=== PATIENT | female | born 1930 | race African-American/Black ===

== ENCOUNTER 2017-01-15 13:18 | Inpatient (IN) | payer MEDICARE, OTHER ==
[~2017-01-15] VITALS: Ht 162.6 cm; Wt 93.9 kg
[~2017-01-15 13:18] MED LIST: AMLODIPINE BESY10 MG ORAL; ASPIR 8181 MG ORAL; BENADRYL25 M3 PO; LORAZEPAM1 MG ORAL; METOPROLOL TART25 MG ORAL; NITROSTAT0.4 M1 SL; TRIAMTERENE-HC1 EAC7 ORAL; [UNRECOGNIZED DRUG - OTHER] RIGHT EYE
[2017-01-15] MEDS ORDERED: Meclizine 25mg tab ORAL ONE (13:45)
[2017-01-15 14:00] LABS: BASOPHILS % (AUTO) 1.8 % (0.0-2.0); EOSINOPHILS % (AUTO) 3.6 % (0.0-3.0); LYMPHOCYTES % (AUTO) 21.8 % (20.0-45.0); MEAN CORPUSCULAR HEMOGLOBIN 30.4 PG (27.0-31.0); MEAN CORPUSCULAR HGB CONC 32.2 G/DL (32.0-36.0); MEAN CORPUSCULAR VOLUME 95 FL (80-99); MEAN PLATELET VOLUME 6.6 FL (6.5-10.1); MONOCYTES % (AUTO) 7.4 % (1.0-10.0); NEUTROPHILS % (AUTO) 65.3 % (45.0-75.0); PLATELET COUNT 237 K/UL (150-450); RED BLOOD COUNT 4.23 M/UL (4.20-5.40); RED CELL DISTRIBUTION WIDTH 12.4 % (11.6-14.8); WHITE BLOOD COUNT 5.3 K/UL (4.8-10.8)
[2017-01-15 14:12] LABS: PROTHROMBIN TIME 10.1 SEC (9.30-11.50)
[2017-01-15 14:15] LABS: TROPONIN I < 0.30 ng/mL (<=0.30)
[2017-01-15] MEDS ORDERED: Miralax 17gm pkt ORAL PRN (14:15)
[2017-01-15] MEDS ORDERED: LORazepam Inj 2mg/ml 1ml IV PRN (14:15)
[2017-01-15] MEDS ORDERED: Morphine Sulfate 2mg/ml Inj IVP PRN (14:15)
[2017-01-15] MEDS ORDERED: Mylanta II UD 30ml ORAL PRN (14:15)
[2017-01-15] MEDS ORDERED: Nitroglycerin Subl 0.4mg tab SL PRN ×2 (14:15→16:00)
[2017-01-15] MEDS ORDERED: Albuterol/Ipratropium 3ml neb HHN PRN (14:15)
[2017-01-15 14:17] VITALS: BP 174/82
[2017-01-15 14:19] LABS: ALANINE AMINOTRANSFERASE 10 U/L (3-33); ALBUMIN/GLOBULIN RATIO 1.4 (1.0-2.7); ANION GAP 14 (5-15); ASPARTATE AMINO TRANSFERASE 18 U/L (5-40); CALCIUM 9.3 mg/dL (8.6-10.2); CARBON DIOXIDE 25 mEQ/L (20-30); CHLORIDE 103 mEQ/L (98-107); CREATININE 1.4 mg/dL (0.5-0.9); HEMOLYSIS 21; SODIUM 142 mEQ/L (135-145); TOTAL PROTEIN 7.1 g/dL (6.6-8.7)
[2017-01-15 14:30] LABS: CKMB 1.8 ng/mL (< 3.8)
--- NOTE | 2017-01-15 14:38 | Diagnostic Imaging Report ---
Indications: Dizziness Technique: Spiral acquisitions obtained through the brain. Angled axial and coronal 5 x 5 mm slices were reconstructed. Total dose length product 1432 mGycm. CTDI vol(s) 17 mGy. Dose reduction achieved using automated exposure control Comparison: None Findings: No acute hemorrhage or edema. No mass effect or midline shift. Old lacunar infarcts are seen in the left basal ganglia and in the left periventricular the white matter. No acute hemorrhage or edema. There is mild periventricular deep white matter chronic ischemic change. Ventricles and extra-axial CSF spaces within normal limits for age. No mass effect nor midline shift. Normal castillo-white differentiation. 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
[2017-01-15 14:46] LABS: APPEARANCE,URINE CLEAR; KETONES,URINE NEGATIVE (NEGATIVE); LEUKOCYTE ESTERASE ,URINE NEGATIVE (NEGATIVE); NITRITE,URINE NEGATIVE (NEGATIVE); PH,URINE 7 (4.5-8.0); PROTEIN,URINE 3+ (NEGATIVE); UROBILINOGEN,URINE NORMAL MG/DL (0.0-1.0)
[2017-01-15 15:02] LABS: BACTERIA,URINE FEW /HPF; RBC,URINE 0-2 /HPF (0 - 2); SQUAMOUS EPITHELIAL CELL,UR FEW /LPF (NONE/OCC); WBC,URINE 0-2 /HPF (0 - 2)
[2017-01-15 15:14] VITALS: BP 155/86
--- NOTE | 2017-01-15 15:35 | Emergency Room Report ---
History of Present Illness General Chief Complaint: Dizziness Source: Patient Present Illness HPI This is a 86-year-old female presented for increased generalized weakness as well as left-sided headache. The patient reported having prior history of transient ischemic attack. The patient had acute onset of symptoms associated with some dizziness. She reported having some lateral neck pain. She states that she takes medications for high blood pressure. She been followed by physicians at [facility]. Allergies: Coded Allergies: SULFADIAZINE (Unverified Allergy, Severe, 01/15/17) PENICILLINS (Verified Allergy, Unknown, 03/28/11) SULFA (SULFONAMIDE ANTIBIOTICS) (Verified Allergy, Unknown, 03/28/11) TETANUS TOXOID,FLUID (Verified Allergy, Unknown, 03/28/11) Patient History Past Medical History: see triage record Reviewed Nursing Documentation: PMH: Agreed, PSxH: Agreed Nursing Documentation-PMH Hx Cardiac Problems: Yes Hx Hypertension: Yes Hx Pacemaker: No Hx Asthma: No Hx COPD: No Hx Diabetes: No Hx Cancer: No Hx Gastrointestinal Problems: No Hx Dialysis: No History Of Psychiatric Problem: No Hx Neurological Problems: No Hx Transient Ischemic Attacks: Yes - 1982 Hx Seizures: No Review of Systems All Other Systems: negative except mentioned in HPI Physical Exam Vital Signs Date Time Temp Pulse Resp B/P (MAP) Pulse Ox O2 Delivery O2 Flow Rate FiO2 01/15/17 13:10 98.2 78 18 178/85 99 01/15/17 14:17 Room Air Sp02 EP Interpretation: reviewed, normal General Appearance: normal inspection, alert, non-toxic, moderate distress Head: atraumatic ENT: normal ENT inspection, hearing grossly normal, normal voice Neck: normal inspection, full range of motion, supple, no bony tend Respiratory: normal inspection, lungs clear, normal breath sounds, no respiratory distress, no retraction, no wheezing Cardiovascular #1: regular rate, rhythm, no edema Gastrointestinal: normal inspection, normal bowel sounds, non tender, soft, no guarding, no hernia Genitourinary: no CVA tenderness Musculoskeletal: normal inspection, back normal, normal range of motion Neurologic: normal inspection, alert, oriented x3, responsive, animal anatomist III-XII nml as tested, cerebellar normal, speech normal Psychiatric: normal inspection, judgement/insight normal, mood/affect normal Skin: normal inspection, normal color, no rash Medical Decision Making Diagnostic Impression: Primary Impression: Dizziness Additional Impressions: ACS (acute coronary syndrome) Generalized weakness ER Course Patient presented for generalized weakness. Differential diagnosis included was not limited to anemia, urinary tract infection, electrolyte abnormality, hypothyroidism, myocardial infarction, myasthenia gravis, dehydration, among others. Because of complexity of patient's case laboratory testing and imaging studies were ordered. EKG interpreted by me showed normal sinus rhythm with a rate of [address] or T wave changes. Patient was noted to have some T-wave inversion. CT the head was ordered due to patient's acute onset of symptoms CT read by radiology showed no evidence acute hemorrhage or CVA. The patient was given aspirin as well as meclizine and Zofran. Patient noted to have episode of chest discomfort while in emergency department. This resolved with medication and nitroglycerin Dr. Campos was contacted for inpatient management due to complexity of medical condition. Labs Test 01/15/17 13:35 01/15/17 14:30 White Blood Count 5.3 K/UL (4.8-10.8) Red Blood Count 4.23 M/UL (4.20-5.40) Hemoglobin 12.9 G/DL (12.0-16.0) Hematocrit 40.0 % (37.0-47.0) Mean Corpuscular Volume 95 FL (80-99) Mean Corpuscular Hemoglobin 30.4 PG (27.0-31.0) Mean Corpuscular Hemoglobin Concent 32.2 G/DL (32.0-36.0) Red Cell Distribution Width 12.4 % (11.6-14.8) Platelet Count 237 K/UL (150-450) Mean Platelet Volume 6.6 FL (6.5-10.1) Neutrophils (%) (Auto) 65.3 % (45.0-75.0) Lymphocytes (%) (Auto) 21.8 % (20.0-45.0) Monocytes (%) (Auto) 7.4 % (1.0-10.0) Eosinophils (%) (Auto) 3.6 % (0.0-3.0) Basophils (%) (Auto) 1.8 % (0.0-2.0) Prothrombin Time 10.1 SEC (9.30-11.50) Prothromb Time International Ratio 1.0 (0.9-1.1) Activated Partial Thromboplast Time 23 SEC (23-33) Sodium Level 142 mEQ/L (135-145) Potassium Level 4.0 mEQ/L (3.4-4.9) Chloride Level 103 mEQ/L (98-107) Carbon Dioxide Level 25 mEQ/L (20-30) Anion Gap 14 (5-15) Blood Urea Nitrogen 16 mg/dL (7-23) Creatinine 1.4 mg/dL (0.5-0.9) Estimat Glomerular Filtration Rate mL/min (>60) Glucose Level 110 mg/dL (74-106) Lactic Acid Level 1.60 mmol/L (0.66-2.22) Calcium Level 9.3 mg/dL (8.6-10.2) Total Bilirubin 0.2 mg/dL (0.0-1.2) Aspartate Amino Transf (AST/SGOT) 18 U/L (5-40) Alanine Aminotransferase (ALT/SGPT) 10 U/L (3-33) Alkaline Phosphatase 99 U/L (35-104) Total Creatine Kinase 118 U/L (26-140) Creatine Kinase MB 1.8 ng/mL (< 3.8) Creatine Kinase MB Relative Index 1.5 Troponin I < 0.30 ng/mL (<=0.30) Total Protein 7.1 g/dL (6.6-8.7) Albumin 4.2 g/dL (3.5-5.2) Globulin 2.9 g/dL Albumin/Globulin Ratio 1.4 (1.0-2.7) Urine Color Pale yellow Urine Appearance Clear Urine pH 7 (4.5-8.0) Urine Specific [place] 1.005 (1.005-1.035) Urine Protein 3+ (NEGATIVE) Urine Glucose (UA) Negative (NEGATIVE) Urine Ketones Negative (NEGATIVE) Urine Occult Blood Negative (NEGATIVE) Urine Nitrite Negative (NEGATIVE) Urine Bilirubin Negative (NEGATIVE) Urine Urobilinogen Normal MG/DL (0.0-1.0) Urine Leukocyte Esterase Negative (NEGATIVE) Urine RBC 0-2 /HPF (0 - 2) Urine WBC 0-2 /HPF (0 - 2) Urine Squamous Epithelial Cells Few /LPF (NONE/OCC) Urine Bacteria Few /HPF (NONE) Last Vital Signs Date Time Temp Pulse Resp B/P (MAP) Pulse Ox O2 Delivery O2 Flow Rate FiO2 01/15/17 15:14 97.3 62 10 155/86 100 Room Air Status: improved Disposition: HOME, SELF-CARE Condition: Stable Referrals: NON PHYSICIAN (PCP) Marco Antonio Junior Jan 15, 2017 15:35
--- NOTE | 2017-01-15 15:43 | Diagnostic Imaging Report ---
Indication: SOB Technique: One view of the chest Comparison: 02/26/2015 Findings: Lungs and pleural space are clear. Heart size is. There is somewhat tortuous and calcified. There are degenerative changes of both shoulders. There is no significant interim change Impression: No acute process
[2017-01-15] MEDS ORDERED: Aspirin Baby 81mg ORAL ONE (15:45)
--- NOTE | 2017-01-15 16:43 | Neurology Progress Note ---
Objective Physical Exam Last Vital Signs Date Time Temp Pulse Resp B/P (MAP) Pulse Ox O2 Delivery O2 Flow Rate FiO2 01/15/17 16:10 97.3 62 10 155/86 100 Room Air Laboratory Tests Test 01/15/17 13:35 01/15/17 14:30 White Blood Count 5.3 K/UL (4.8-10.8) Red Blood Count 4.23 M/UL (4.20-5.40) Hemoglobin 12.9 G/DL (12.0-16.0) Hematocrit 40.0 % (37.0-47.0) Mean Corpuscular Volume 95 FL (80-99) Mean Corpuscular Hemoglobin 30.4 PG (27.0-31.0) Mean Corpuscular Hemoglobin Concent 32.2 G/DL (32.0-36.0) Red Cell Distribution Width 12.4 % (11.6-14.8) Platelet Count 237 K/UL (150-450) Mean Platelet Volume 6.6 FL (6.5-10.1) Neutrophils (%) (Auto) 65.3 % (45.0-75.0) Lymphocytes (%) (Auto) 21.8 % (20.0-45.0) Monocytes (%) (Auto) 7.4 % (1.0-10.0) Eosinophils (%) (Auto) 3.6 % (0.0-3.0) H Basophils (%) (Auto) 1.8 % (0.0-2.0) Prothrombin Time 10.1 SEC (9.30-11.50) Prothromb Time International Ratio 1.0 (0.9-1.1) Activated Partial Thromboplast Time 23 SEC (23-33) Sodium Level 142 mEQ/L (135-145) Potassium Level 4.0 mEQ/L (3.4-4.9) Chloride Level 103 mEQ/L (98-107) Carbon Dioxide Level 25 mEQ/L (20-30) Anion Gap 14 (5-15) Blood Urea Nitrogen 16 mg/dL (7-23) Creatinine 1.4 mg/dL (0.5-0.9) H Estimat Glomerular Filtration Rate mL/min (>60) Glucose Level 110 mg/dL (74-106) H Lactic Acid Level 1.60 mmol/L (0.66-2.22) Calcium Level 9.3 mg/dL (8.6-10.2) Total Bilirubin 0.2 mg/dL (0.0-1.2) Aspartate Amino Transf (AST/SGOT) 18 U/L (5-40) Alanine Aminotransferase (ALT/SGPT) 10 U/L (3-33) Alkaline Phosphatase 99 U/L (35-104) Total Creatine Kinase 118 U/L (26-140) Creatine Kinase MB 1.8 ng/mL (< 3.8) Creatine Kinase MB Relative Index 1.5 Troponin I < 0.30 ng/mL (<=0.30) Total Protein 7.1 g/dL (6.6-8.7) Albumin 4.2 g/dL (3.5-5.2) Globulin 2.9 g/dL Albumin/Globulin Ratio 1.4 (1.0-2.7) Urine Color Pale yellow Urine Appearance Clear Urine pH 7 (4.5-8.0) Urine Specific [place] 1.005 (1.005-1.035) Urine Protein 3+ (NEGATIVE) H Urine Glucose (UA) Negative (NEGATIVE) Urine Ketones Negative (NEGATIVE) Urine Occult Blood Negative (NEGATIVE) Urine Nitrite Negative (NEGATIVE) Urine Bilirubin Negative (NEGATIVE) Urine Urobilinogen Normal MG/DL (0.0-1.0) Urine Leukocyte Esterase Negative (NEGATIVE) Urine RBC 0-2 /HPF (0 - 2) Urine WBC 0-2 /HPF (0 - 2) Urine Squamous Epithelial Cells Few /LPF (NONE/OCC) Urine Bacteria Few /HPF (NONE) Impression/Recommendations Recommendations # [id number] MARCE HUSSEIN Jan 15, 2017 16:43
[2017-01-15 20:00] VITALS: BP 152/76
[2017-01-15] MEDS: Metoprolol 25mg tab ORAL SCH (20:51)
[2017-01-15] MEDS: Heparin 5000 units/ml inj SUBQ SCH (20:53)
--- NOTE | 2017-01-15 21:00 | Consultation ---
DATE OF CONSULTATION: 01/15/2017 NEUROLOGICAL CONSULTATION REQUESTING PHYSICIAN: Bandar Campos M.D. History Of Present Illness: An 86 years old female, seen in neurological consultation to evaluate new onset of severe left-sided headache. According to the patient, she woke up this morning feeling fairly well, but after the breakfast, she started to develop generalized weakness, pain in her left periorbital, left yazidi, and left side of the neck area, and slight blurriness of vision in left eye. When she checked her blood pressure, it was 203/67. She called her doctor, advised to take extra pill of Lopressor, since she was not getting better, she called the visiting nurse and at that point 911 was requested. The patient was brought to this hospital complaining of generalized weakness and left-sided headache. Her vital signs included blood pressure 178/85 and temperature 98.2 degrees. EKG, normal sinus rhythm, no acute changes. Her laboratory work included normal CBC, coagulation, and chemistry panel except creatinine 1.4. Imaging studies included a chest x-ray with no acute process noted as well as CAT scan of the brain without contrast revealing old left lacunar infarct, left basal ganglia, left periventricular white matter with chronic ischemic changes noted, no evidence of acute intracranial abnormalities, no midline shift. Her vital signs were fluctuating. She had an episode of chest pain with blood pressure going up to 175. As the blood pressure is somewhat subsided, the patient felt better. She was given treatment with aspirin, meclizine, and Zofran. Chest pressure was relieved by use of nitroglycerin. The patient was placed to monitored bed. 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 Social History: She lives alone. No alcohol. No drug abuse. She has a caregiver. FAMILY HISTORY: Noncontributory. Review Of Systems: Generalized weakness but predominantly aching pain in left side of the neck, left temporal area, and has chronic left shoulder pain. Currently, no chest pain. No abdominal discomfort, but has constipation. PHYSICAL EXAMINATION: General: A well-developed, well-nourished, pleasant lady, in no acute distress. VITAL SIGNS: Stable. Blood pressure 154/92 and respirations 18. HEENT: Head: Normocephalic. There is no evidence of trauma, but there is palpable tenderness in the left temporal area, left preauricular region, and left side of the neck. Extremities: Upper and lower extremities without clubbing, cyanosis, or edema. Palpable tenderness in the left shoulder with range of motion limited. Peripheral pulses 1+ symmetric. Mental Status: The patient is fully alert and oriented x3. Her speech is fluent. Language intact. There is no aphasia. No apraxia. Cognitive function normal. Cranial Nerve II: Pupils both responding to light and accommodation. Extraocular movements intact. No nystagmus. CRANIAL NERVE V: Normal corneal responses. CRANIAL NERVE VII: No facial asymmetry. CRANIAL NERVE VIII: Grossly normal hearing. CRANIAL NERVES IX THROUGH XII: Within normal limits. Motor Examination: Normal muscle tone. Strength 5/5 in all extremities. No involuntary movement. Deep reflexes 1+ symmetric with downgoing toes on both sides. Sensory Examination: Normal to pinprick and light touch. Gait slow and wobbly. IMPRESSION: 1. Hypertension, out of control. 2. New onset of left hemicrania, left neck pain, rule out referred pain, rule out cervical radiculopathy. 3. Coronary artery disease. 4. Hypertension. 5. Renal insufficiency. 6. Rule out temporal arteritis with left temporal pain. RECOMMENDATION: 1. Sedimentation rate, CRP, JENNIFER, B12, vitamin D level, and thyroid function. 2. Cardiac monitoring. 3. Maintain systolic blood pressure above 120 and below 150. 4. Hydration. 5. Subcutaneous heparin. 6. Aspirin 81 mg. 7. X-ray cervical spine. Thank you for allowing me to see this interesting patient in neurological consultation. Sal Campos M.D. DR: Cj JOB#: [id number] CC:
--- NOTE | 2017-01-15 21:30 | Cardiology Progress Note ---
Assessment/Plan Assessment/Plan [id number] Objective Last 24 Hour Vital Signs Date Time Temp Pulse Resp B/P (MAP) Pulse Ox O2 Delivery O2 Flow Rate FiO2 01/15/17 21:20 71 18 Room Air 01/15/17 20:51 62 152/76 01/15/17 20:00 97.2 61 21 152/76 99 Room Air 01/15/17 16:10 97.3 62 10 155/86 100 Room Air 01/15/17 15:14 97.3 62 10 155/86 100 Room Air 01/15/17 14:17 98.5 65 18 174/82 100 Room Air 01/15/17 14:14 174/82 01/15/17 13:10 98.2 78 18 178/85 99 Intake and Output 01/15/17 01/16/17 19:00 07:00 Intake Total 240 ml Balance 240 ml Intake Oral 240 ml # Voids 1 # Bowel Movements 1 Laboratory Tests Test 01/15/17 13:35 01/15/17 14:30 White Blood Count 5.3 K/UL (4.8-10.8) Red Blood Count 4.23 M/UL (4.20-5.40) Hemoglobin 12.9 G/DL (12.0-16.0) Hematocrit 40.0 % (37.0-47.0) Mean Corpuscular Volume 95 FL (80-99) Mean Corpuscular Hemoglobin 30.4 PG (27.0-31.0) Mean Corpuscular Hemoglobin Concent 32.2 G/DL (32.0-36.0) Red Cell Distribution Width 12.4 % (11.6-14.8) Platelet Count 237 K/UL (150-450) Mean Platelet Volume 6.6 FL (6.5-10.1) Neutrophils (%) (Auto) 65.3 % (45.0-75.0) Lymphocytes (%) (Auto) 21.8 % (20.0-45.0) Monocytes (%) (Auto) 7.4 % (1.0-10.0) Eosinophils (%) (Auto) 3.6 % (0.0-3.0) H Basophils (%) (Auto) 1.8 % (0.0-2.0) Prothrombin Time 10.1 SEC (9.30-11.50) Prothromb Time International Ratio 1.0 (0.9-1.1) Activated Partial Thromboplast Time 23 SEC (23-33) Sodium Level 142 mEQ/L (135-145) Potassium Level 4.0 mEQ/L (3.4-4.9) Chloride Level 103 mEQ/L (98-107) Carbon Dioxide Level 25 mEQ/L (20-30) Anion Gap 14 (5-15) Blood Urea Nitrogen 16 mg/dL (7-23) Creatinine 1.4 mg/dL (0.5-0.9) H Estimat Glomerular Filtration Rate mL/min (>60) Glucose Level 110 mg/dL (74-106) H Lactic Acid Level 1.60 mmol/L (0.66-2.22) Calcium Level 9.3 mg/dL (8.6-10.2) Total Bilirubin 0.2 mg/dL (0.0-1.2) Aspartate Amino Transf (AST/SGOT) 18 U/L (5-40) Alanine Aminotransferase (ALT/SGPT) 10 U/L (3-33) Alkaline Phosphatase 99 U/L (35-104) Total Creatine Kinase 118 U/L (26-140) Creatine Kinase MB 1.8 ng/mL (< 3.8) Creatine Kinase MB Relative Index 1.5 Troponin I < 0.30 ng/mL (<=0.30) Total Protein 7.1 g/dL (6.6-8.7) Albumin 4.2 g/dL (3.5-5.2) Globulin 2.9 g/dL Albumin/Globulin Ratio 1.4 (1.0-2.7) Urine Color Pale yellow Urine Appearance Clear Urine pH 7 (4.5-8.0) Urine Specific [place] 1.005 (1.005-1.035) Urine Protein 3+ (NEGATIVE) H Urine Glucose (UA) Negative (NEGATIVE) Urine Ketones Negative (NEGATIVE) Urine Occult Blood Negative (NEGATIVE) Urine Nitrite Negative (NEGATIVE) Urine Bilirubin Negative (NEGATIVE) Urine Urobilinogen Normal MG/DL (0.0-1.0) Urine Leukocyte Esterase Negative (NEGATIVE) Urine RBC 0-2 /HPF (0 - 2) Urine WBC 0-2 /HPF (0 - 2) Urine Squamous Epithelial Cells Few /LPF (NONE/OCC) Urine Bacteria Few /HPF (NONE) MARLENY RAMOS Jan 15, 2017 21:30
[2017-01-16] VITALS: BP 154/77
[2017-01-16 04:00] VITALS: BP 155/94
--- NOTE | 2017-01-16 06:15 | Consultation ---
DATE OF CONSULTATION: 01/15/2017 CARDIOLOGY CONSULTATION CONSULTING PHYSICIAN: Nuno Shen M.D. REFERRING PHYSICIAN: Bandar Campos M.D. Reason For Referral: Possible chest pain and elevated blood pressure. History Of Present Illness: This is an elderly female, who usually receives her care at [facility]. The patient was admitted to the hospital back on 12/26/2016 for similar symptoms that she is presenting to the hospital at this time. She basically indicates that she got up in the morning, her blood pressure was elevated, took some extra doses of beta-blockers as she was instructed by her validation technician staff and that did not help, so she was told to call paramedics by home health. The patient was brought to the emergency room at [facility] and has been admitted. She does not really have any chest pain at this time. She has had chronic recurrent chest pains. She has had evaluations on prior occasions. In fact, she was recently hospitalized for the same situation over at the [facility], [place]. Her validation technician did not apparently do a stress test. She indicates she has had a history of cardiac issues before. She may have had some kind of a procedure done, which she is not sure about. In 2014, she had perfusion imaging that was negative here at [facility] for her atypical chest pains at that time as well. She uses 2 pillows. She does have dizziness occasionally when she sits up or stands up. She has occasional palpitations. She has occasional dyspnea on exertion. Past Medical History: Positive for history of atypical chest pains as mentioned, borderline diabetes, hypertension, chronic kidney disease, and hyperlipidemia. She had a transient ischemic attack apparently. She has some renal insufficiency and apparently some GI bleed issues, although she just was not sure if it was vaginal or rectal. She states that it had been evaluated at the [facility], [place], she is not sure what they found. She has never had a blood clot. Allergies: She is allergic to multiple medications including penicillin, sulfa, sulfasalazine, and iodine. Social History: She never smoked and never drank alcoholic beverages. Review Of Systems: Gastrointestinal: She has had rectal bleeding as mentioned in earlier this month with evaluation at [facility]. Genitourinary: Negative. Pulmonary: Positive for occasional coughing, but she thinks it is related to her medication. Constitutional: Negative. Neurological: Negative. PHYSICAL EXAMINATION: General: Physical examination shows her to be elderly female, in no respiratory distress. Vital Signs: Blood pressure is anywhere between 152/76 to 174/82, heart rate 61 to 65 range, and telemetry data is unremarkable Neck: Supple. No jugular venous distention. No abdominojugular reflux noted. LUNGS: Clear to auscultation and percussion. Cardiac: S1 is normal. S2 is normal. Regular rate and rhythm. Systolic ejection murmur is noted. No RV lift, heaves, thrills, or gallops noted. ABDOMEN: Soft and nontender. Positive bowel sounds. EXTREMITIES: There is no clubbing, cyanosis, nor is there any edema. Neurologic: She is awake, alert, responsive, in no apparent respiratory distress. Laboratory And Diagnostic Data: Electrocardiogram showed normal sinus rhythm, leftward axis, no significant ST-T wave abnormalities of any insignificant degree in direct comparison. She actually had 2 EKGs, none of which seemed to be any different. She also had blood tests. She has had a white count of 5.3, with hemoglobin of 12.9, and platelet count of 237. Sodium is 142, potassium 4.0, chloride 103, bicarbonate 25, BUN 16, creatinine 1.4, and glucose of 110. Lactic acid 1.6. Troponin is less than 0.03. Her coagulations, INR 1.2 and PTT of 23. A chest x-ray was performed today and showed no acute processes. ASSESSMENT AND PLAN: 1. Elevated blood pressure with history of hypertension. 2. Atypical chest pain, chronic, recurrent. 3. Renal insufficiency. 4. Questionable history of recent gastrointestinal and rectal bleed issues. Dr. Campos, this patient was seen in cardiac consultation. This patient apparently has had similar situations and symptoms, for which she was hospitalized at [facility], [place]. She has had a cardiac catheterization a couple of years ago or a stress test a couple of years ago, but that was done here and that was negative. If her cardiac enzymes remain negative, EKG and troponin are negative, then she may be better off just following up with the validation technician to have further testing. If she has got any abnormalities on the blood testing, we will consider further inpatient evaluation. Her blood pressure appears to be well controlled. Nuno Shen M.D. DR: Osvaldo JOB#: [id number] CC:
[2017-01-16 07:00] LABS: BASOPHILS % (AUTO) 1.7 % (0.0-2.0); EOSINOPHILS % (AUTO) 7.3 % (0.0-3.0); LYMPHOCYTES % (AUTO) 32.6 % (20.0-45.0); MEAN CORPUSCULAR HEMOGLOBIN 31.2 PG (27.0-31.0); MEAN CORPUSCULAR HGB CONC 32.6 G/DL (32.0-36.0); MEAN CORPUSCULAR VOLUME 96 FL (80-99); MEAN PLATELET VOLUME 7.5 FL (6.5-10.1); MONOCYTES % (AUTO) 13.1 % (1.0-10.0); NEUTROPHILS % (AUTO) 45.3 % (45.0-75.0); PLATELET COUNT 224 K/UL (150-450); PROTHROMBIN TIME 10.7 SEC (9.30-11.50); RED CELL DISTRIBUTION WIDTH 12.9 % (11.6-14.8); WHITE BLOOD COUNT 4.8 K/UL (4.8-10.8)
[2017-01-16 07:19] LABS: ANION GAP 12 (5-15); CARBON DIOXIDE 26 mEQ/L (20-30); CHLORIDE 108 mEQ/L (98-107); CREATININE 1.3 mg/dL (0.5-0.9); POTASSIUM 4.3 mEQ/L (3.4-4.9); SODIUM 146 mEQ/L (135-145)
[2017-01-16 07:20] LABS: ALANINE AMINOTRANSFERASE 8 U/L (3-33); ALBUMIN/GLOBULIN RATIO 1.2 (1.0-2.7); ASPARTATE AMINO TRANSFERASE 13 U/L (5-40); CHOLESTEROL 173 mg/dL (< 200); CHOLESTEROL/HDL RATIO 2.3 (3.3-4.4); HEMOLYSIS 4; LDL CHOLESTEROL CALC 85 mg/dL (60-99); TOTAL PROTEIN 6.3 g/dL (6.6-8.7)
[2017-01-16 07:21] LABS: TROPONIN I < 0.30 ng/mL (<=0.30)
[2017-01-16 08:00] VITALS: BP 167/73
[2017-01-16] MEDS: Aspirin EC 81mg tab ORAL SCH (08:55)
[2017-01-16] MEDS: Metoprolol 25mg tab ORAL SCH ×2 (09:00→22:24)
[2017-01-16] MEDS: Heparin 5000 units/ml inj SUBQ SCH ×2 (09:00→22:23)
[2017-01-16 12:00] VITALS: BP 129/65
--- NOTE | 2017-01-16 14:47 | History and Physical ---
History of Present Illness General Reason for Hospitalization: Dizziness Present Illness HPI 86-year-old female with hx of HTN, presented for increased generalized weakness as well as left-sided headache. The patient had acute onset of symptoms associated with some dizziness. She took her BP which was more than 200. She states that she takes medications for high blood pressure. She called her primary's office who told her to take a full pill of Lopressor instead of half a pill. Allergies: Coded Allergies: SULFADIAZINE (Unverified Allergy, Severe, 01/15/17) PENICILLINS (Verified Allergy, Unknown, 03/28/11) SULFA (SULFONAMIDE ANTIBIOTICS) (Verified Allergy, Unknown, 03/28/11) TETANUS TOXOID,FLUID (Verified Allergy, Unknown, 03/28/11) Medication History Scheduled Amlodipine Besylate* (Amlodipine Besylate*), 10 MG ORAL DAILY, (Reported) Aspirin* (Aspir 81*), 81 MG ORAL DAILY, (Reported) Diphenhydramine HCl (Benadryl), 50 MG PO FOUR TIMES A DAY, (Reported) Lorazepam* (Lorazepam*), 1 MG ORAL DAILY, (Reported) Metoprolol Tartrate* (Metoprolol Tartrate*), 25 MG ORAL TWICE A DAY, (Reported) Triamterene/Hydrochlorothiazid (Triamterene-Hctz 37.5-25 Mg Cp), 1 CAP ORAL DAILY, (Reported) Scheduled PRN Nitroglycerin (Nitrostat), 0.4 MG SL Q5M X3 DOSES PRN for Severe Pain (Pain Scale 7-10), (Reported) Prednisolone/Sulfacetamide (Blephamide Eye Ointment), 1 APPLIC RIGHT EYE DAILY PRN for Dry Eyes, (Reported) Patient History Healthcare decision maker N Resuscitation status Full Code Advanced Directive on File Past Medical/Surgical History Past Medical/Surgical History: (1) CAD (coronary artery disease) (2) Anemia (3) HTN (hypertension) Review of Systems All Other Systems: negative except mentioned in HPI Physical Exam General Appearance: WD/WN Lines, tubes and drains: peripheral, PICC HEENT: normocephalic, atraumatic Neck: non-tender, normal alignment Respiratory/Chest: chest wall non-tender, lungs clear Abdomen: normal bowel sounds, non tender Genitourinary/Rectal: normal genital exam Last 24 Hour Vital Signs Date Time Temp Pulse Resp B/P (MAP) Pulse Ox O2 Delivery O2 Flow Rate FiO2 01/16/17 12:00 56 01/16/17 12:00 97.2 56 20 129/65 99 Room Air 01/16/17 09:00 62 167/73 01/16/17 08:59 167/73 01/16/17 08:56 62 167/73 01/16/17 08:00 97.0 62 20 167/73 98 Room Air 01/16/17 08:00 65 01/16/17 07:47 60 18 Room Air 01/16/17 04:06 59 01/16/17 04:00 98.1 60 20 155/94 97 Room Air 01/16/17 00:00 97.0 60 20 154/77 97 Room Air 01/15/17 23:44 59 01/15/17 21:20 71 18 Room Air 01/15/17 20:51 62 152/76 01/15/17 20:23 60 01/15/17 20:00 97.2 61 21 152/76 99 Room Air 01/15/17 16:10 97.3 62 10 155/86 100 Room Air 01/15/17 15:14 97.3 62 10 155/86 100 Room Air Laboratory Tests Test 01/16/17 06:25 White Blood Count 4.8 K/UL (4.8-10.8) Red Blood Count 3.90 M/UL (4.20-5.40) L Hemoglobin 12.2 G/DL (12.0-16.0) Hematocrit 37.3 % (37.0-47.0) Mean Corpuscular Volume 96 FL (80-99) Mean Corpuscular Hemoglobin 31.2 PG (27.0-31.0) H Mean Corpuscular Hemoglobin Concent 32.6 G/DL (32.0-36.0) Red Cell Distribution Width 12.9 % (11.6-14.8) Platelet Count 224 K/UL (150-450) Mean Platelet Volume 7.5 FL (6.5-10.1) Neutrophils (%) (Auto) 45.3 % (45.0-75.0) Lymphocytes (%) (Auto) 32.6 % (20.0-45.0) Monocytes (%) (Auto) 13.1 % (1.0-10.0) H Eosinophils (%) (Auto) 7.3 % (0.0-3.0) H Basophils (%) (Auto) 1.7 % (0.0-2.0) Prothrombin Time 10.7 SEC (9.30-11.50) Prothromb Time International Ratio 1.0 (0.9-1.1) Activated Partial Thromboplast Time 28 SEC (23-33) Sodium Level 146 mEQ/L (135-145) H Potassium Level 4.3 mEQ/L (3.4-4.9) Chloride Level 108 mEQ/L (98-107) H Carbon Dioxide Level 26 mEQ/L (20-30) Anion Gap 12 (5-15) Blood Urea Nitrogen 15 mg/dL (7-23) Creatinine 1.3 mg/dL (0.5-0.9) H Estimat Glomerular Filtration Rate mL/min (>60) Glucose Level 102 mg/dL (74-106) Calcium Level 9.0 mg/dL (8.6-10.2) Total Bilirubin 0.3 mg/dL (0.0-1.2) Aspartate Amino Transf (AST/SGOT) 13 U/L (5-40) Alanine Aminotransferase (ALT/SGPT) 8 U/L (3-33) Alkaline Phosphatase 89 U/L (35-104) Troponin I < 0.30 ng/mL (<=0.30) Total Protein 6.3 g/dL (6.6-8.7) L Albumin 3.5 g/dL (3.5-5.2) Globulin 2.8 g/dL Albumin/Globulin Ratio 1.2 (1.0-2.7) Triglycerides Level 66 mg/dL (< 150) Cholesterol Level 173 mg/dL (< 200) LDL Cholesterol 85 mg/dL (60-99) HDL Cholesterol 75 mg/dL (> 60) H Cholesterol/HDL Ratio 2.3 (3.3-4.4) L Thyroid Stimulating Hormone (TSH) 1.990 uIU/mL (0.300-4.500) Height (Feet): 5 Height (Inches): 4.00 Weight (Pounds): 207 Medications Current Medications Medications (Trade) Dose Ordered Sig/Derek Route PRN Reason Start Time Stop Time Status Last Admin Dose Admin Acetaminophen (Tylenol) 650 mg Q4H PRN ORAL fever 01/15/17 14:15 02/14/17 14:14 Al Hydroxide/Mg Hydroxide (Mylanta II) 30 ml Q6H PRN ORAL dyspepsia 01/15/17 14:15 02/14/17 14:14 Albuterol/ Ipratropium (DuoNeb 0.5-3(2.5)mg/3ml) 3 ml Q4H PRN HHN Shortness of Breath 01/15/17 14:15 01/20/17 14:14 Amlodipine Besylate (Norvasc) 10 mg DAILY ORAL 01/16/17 09:00 02/15/17 08:59 01/16/17 08:56 Aspirin (Ecotrin) 81 mg DAILY ORAL 01/16/17 09:00 02/15/17 08:59 01/16/17 08:55 Clonidine HCl (Catapres) 0.1 mg Q4H PRN ORAL For High Blood Pressure 01/15/17 14:15 02/14/17 14:14 01/16/17 08:59 Dextrose (Dextrose 50%) STAT PRN IV Hypoglycemia 01/15/17 14:15 02/14/17 14:14 Heparin Sodium (Porcine) (Heparin 5000 units/ml) 5,000 units EVERY 12 HOURS SUBQ 01/15/17 21:00 02/14/17 20:59 01/15/17 20:53 Lorazepam (Ativan 2mg/ml 1ml) 0.5 mg Q4H PRN IV For Anxiety 01/15/17 14:15 01/22/17 14:14 Metoprolol Tartrate (Lopressor) 25 mg Q12HR ORAL 01/15/17 21:00 02/14/17 20:59 01/15/17 20:51 Morphine Sulfate (Morphine Sulfate) 1 mg Q4H PRN IVP For Pain 7-10 01/15/17 14:15 01/22/17 14:14 Nitroglycerin (Ntg) 0.4 mg Q5M X 3 DOSES PRN SL Prn Chest Pain 01/15/17 16:00 02/14/17 15:59 Ondansetron HCl (Zofran) 4 mg Q6H PRN IVP Nausea & Vomiting 01/15/17 14:15 02/14/17 14:14 Polyethylene Glycol (Miralax) 17 gm HSPRN PRN ORAL Constipation 01/15/17 14:15 02/14/17 14:14 Temazepam (Restoril) 15 mg HSPRN PRN ORAL Insomnia 01/15/17 14:15 01/22/17 14:14 Assessment/Plan Problem List: (1) Hypertensive emergency ICD Codes: I16.1 - Hypertensive emergency SNOMED: 876420289581726 (2) Hypertensive encephalopathy ICD Codes: I67.4 - Hypertensive encephalopathy SNOMED: 77145893 (3) CAD (coronary artery disease) ICD Codes: I25.10 - Atherosclerotic heart disease of robinson coronary artery without angina pectoris SNOMED: 66601339 (4) Generalized weakness ICD Codes: R53.1 - Weakness SNOMED: 10510760, 636077500 (5) ATN (acute tubular necrosis) ICD Codes: N17.0 - Acute kidney failure with tubular necrosis SNOMED: 55397763 Assessment/Plan telemetry admission monitor bp echo cardiogram pt/ot renal studies dvt prophylaxis CORINA MICHELLE Jan 16, 2017 14:47
--- NOTE | 2017-01-16 14:50 | Pulmonology Progress Note ---
Assessment/Plan Problems: (1) Hypertensive emergency (2) Hypertensive encephalopathy (3) CAD (coronary artery disease) (4) Generalized weakness (5) ATN (acute tubular necrosis) Assessment/Plan bp better ct of head reviewed renal studies undergoing check echo Subjective ROS Limited/Unobtainable: No Constitutional: Reports: no symptoms HEENT: Repors: no symptoms Respiratory: Reports: no symptoms Allergies: Coded Allergies: SULFADIAZINE (Unverified Allergy, Severe, 01/15/17) PENICILLINS (Verified Allergy, Unknown, 03/28/11) SULFA (SULFONAMIDE ANTIBIOTICS) (Verified Allergy, Unknown, 03/28/11) TETANUS TOXOID,FLUID (Verified Allergy, Unknown, 03/28/11) Objective Last 24 Hour Vital Signs Date Time Temp Pulse Resp B/P (MAP) Pulse Ox O2 Delivery O2 Flow Rate FiO2 01/16/17 12:00 56 01/16/17 12:00 97.2 56 20 129/65 99 Room Air 01/16/17 09:00 62 167/73 01/16/17 08:59 167/73 01/16/17 08:56 62 167/73 01/16/17 08:00 97.0 62 20 167/73 98 Room Air 01/16/17 08:00 65 01/16/17 07:47 60 18 Room Air 01/16/17 04:06 59 01/16/17 04:00 98.1 60 20 155/94 97 Room Air 01/16/17 00:00 97.0 60 20 154/77 97 Room Air 01/15/17 23:44 59 01/15/17 21:20 71 18 Room Air 01/15/17 20:51 62 152/76 01/15/17 20:23 60 01/15/17 20:00 97.2 61 21 152/76 99 Room Air 01/15/17 16:10 97.3 62 10 155/86 100 Room Air 01/15/17 15:14 97.3 62 10 155/86 100 Room Air General Appearance: WD/WN HEENT: normocephalic, atraumatic Respiratory/Chest: chest wall non-tender, lungs clear Breasts: no masses Cardiovascular: normal rate Abdomen: normal bowel sounds, soft, non tender Genitourinary: normal external genitalia Extremities: no clubbing Laboratory Tests 01/16/17 06:25: White Blood Count 4.8, Red Blood Count 3.90L, Hemoglobin 12.2, Hematocrit 37.3, Mean Corpuscular Volume 96, Mean Corpuscular Hemoglobin 31.2H, Mean Corpuscular Hemoglobin Concent 32.6, Red Cell Distribution Width 12.9, Platelet Count 224, Mean Platelet Volume 7.5, Neutrophils (%) (Auto) 45.3, Lymphocytes (%) (Auto) 32.6, Monocytes (%) (Auto) 13.1H, Eosinophils (%) (Auto) 7.3H, Basophils (%) ( Auto) 1.7, Prothrombin Time 10.7, Prothromb Time International Ratio 1.0, Activated Partial Thromboplast Time 28, Sodium Level 146H, Potassium Level 4.3, Chloride Level 108H, Carbon Dioxide Level 26, Anion Gap 12, Blood Urea Nitrogen 15, Creatinine 1.3H, Estimat Glomerular Filtration Rate , Glucose Level 102, Calcium Level 9.0, Total Bilirubin 0.3, Aspartate Amino Transf (AST/SGOT) 13, Alanine Aminotransferase (ALT/SGPT) 8, Alkaline Phosphatase 89, Troponin I < 0.30, Total Protein 6.3L, Albumin 3.5, Globulin 2.8, Albumin/Globulin Ratio 1.2 , Triglycerides Level 66, Cholesterol Level 173, LDL Cholesterol 85, HDL Cholesterol 75H, Cholesterol/HDL Ratio 2.3L, Thyroid Stimulating Hormone (TSH) 1.990 Current Medications Medications (Trade) Dose Ordered Sig/Derek Route PRN Reason Start Time Stop Time Status Last Admin Dose Admin Acetaminophen (Tylenol) 650 mg Q4H PRN ORAL fever 01/15/17 14:15 02/14/17 14:14 Al Hydroxide/Mg Hydroxide (Mylanta II) 30 ml Q6H PRN ORAL dyspepsia 01/15/17 14:15 02/14/17 14:14 Albuterol/ Ipratropium (DuoNeb 0.5-3(2.5)mg/3ml) 3 ml Q4H PRN HHN Shortness of Breath 01/15/17 14:15 01/20/17 14:14 Amlodipine Besylate (Norvasc) 10 mg DAILY ORAL 01/16/17 09:00 02/15/17 08:59 01/16/17 08:56 Aspirin (Ecotrin) 81 mg DAILY ORAL 01/16/17 09:00 02/15/17 08:59 01/16/17 08:55 Clonidine HCl (Catapres) 0.1 mg Q4H PRN ORAL For High Blood Pressure 01/15/17 14:15 02/14/17 14:14 01/16/17 08:59 Dextrose (Dextrose 50%) STAT PRN IV Hypoglycemia 01/15/17 14:15 02/14/17 14:14 Heparin Sodium (Porcine) (Heparin 5000 units/ml) 5,000 units EVERY 12 HOURS SUBQ 01/15/17 21:00 02/14/17 20:59 01/15/17 20:53 Ibuprofen (Motrin) 600 mg THREE TIMES A DAY ORAL 01/16/17 14:45 02/15/17 14:44 UNV Lorazepam (Ativan 2mg/ml 1ml) 0.5 mg Q4H PRN IV For Anxiety 01/15/17 14:15 01/22/17 14:14 Metoprolol Tartrate (Lopressor) 25 mg Q12HR ORAL 01/15/17 21:00 02/14/17 20:59 01/15/17 20:51 Morphine Sulfate (Morphine Sulfate) 1 mg Q4H PRN IVP For Pain 7-10 01/15/17 14:15 01/22/17 14:14 Nitroglycerin (Ntg) 0.4 mg Q5M X 3 DOSES PRN SL Prn Chest Pain 01/15/17 16:00 02/14/17 15:59 Ondansetron HCl (Zofran) 4 mg Q6H PRN IVP Nausea & Vomiting 01/15/17 14:15 02/14/17 14:14 Polyethylene Glycol (Miralax) 17 gm HSPRN PRN ORAL Constipation 01/15/17 14:15 02/14/17 14:14 Temazepam (Restoril) 15 mg HSPRN PRN ORAL Insomnia 01/15/17 14:15 01/22/17 14:14 CORINA MICHELLE Jan 16, 2017 14:50
[2017-01-16 16:00] VITALS: BP 135/72
[2017-01-16 20:00] VITALS: BP 139/70
--- NOTE | 2017-01-16 20:40 | Cardiology Progress Note ---
Assessment/Plan Assessment/Plan 1. Elevated blood pressure with history of hypertension. 2. Atypical chest pain, chronic, recurrent. 3. Renal insufficiency. 4. Questionable history of recent gastrointestinal and rectal bleed issues. all trop neg ekg non specific t wave changes has hs of wut with primary floor runner recently no exertional sx now bp seem ok will restart dyazide since no abn trop would allow her to see her usual floor runner who has followed her to consider other mcdonald iff not been performed recently with him Subjective Cardiovascular: Denies: chest pain, lightheadedness, palpitations Respiratory: Denies: shortness of breath, SOB with excertion Gastrointestinal/Abdominal: Denies: abdominal pain Genitourinary: Denies: burning Subjective walked in the [place] several occsioan Objective Last 24 Hour Vital Signs Date Time Temp Pulse Resp B/P (MAP) Pulse Ox O2 Delivery O2 Flow Rate FiO2 01/16/17 20:25 66 20 Room Air 01/16/17 16:00 97.3 61 19 135/72 99 Room Air 01/16/17 16:00 59 01/16/17 12:00 56 01/16/17 12:00 97.2 56 20 129/65 99 Room Air 01/16/17 09:00 62 167/73 01/16/17 08:59 167/73 01/16/17 08:56 62 167/73 01/16/17 08:00 97.0 62 20 167/73 98 Room Air 01/16/17 08:00 65 01/16/17 07:47 60 18 Room Air 01/16/17 04:06 59 01/16/17 04:00 98.1 60 20 155/94 97 Room Air 01/16/17 00:00 97.0 60 20 154/77 97 Room Air 01/15/17 23:44 59 01/15/17 21:20 71 18 Room Air 01/15/17 20:51 62 152/76 General Appearance: no apparent distress, alert Neck: supple Cardiovascular: normal rate, regular rhythm Respiratory/Chest: lungs clear, normal breath sounds Abdomen: normal bowel sounds, non tender, soft Extremities: no swelling Intake and Output 01/16/17 01/17/17 19:00 07:00 Intake Total 360 ml Balance 360 ml Intake Oral 360 ml # Voids 2 Laboratory Tests Test 01/16/17 06:25 White Blood Count 4.8 K/UL (4.8-10.8) Red Blood Count 3.90 M/UL (4.20-5.40) L Hemoglobin 12.2 G/DL (12.0-16.0) Hematocrit 37.3 % (37.0-47.0) Mean Corpuscular Volume 96 FL (80-99) Mean Corpuscular Hemoglobin 31.2 PG (27.0-31.0) H Mean Corpuscular Hemoglobin Concent 32.6 G/DL (32.0-36.0) Red Cell Distribution Width 12.9 % (11.6-14.8) Platelet Count 224 K/UL (150-450) Mean Platelet Volume 7.5 FL (6.5-10.1) Neutrophils (%) (Auto) 45.3 % (45.0-75.0) Lymphocytes (%) (Auto) 32.6 % (20.0-45.0) Monocytes (%) (Auto) 13.1 % (1.0-10.0) H Eosinophils (%) (Auto) 7.3 % (0.0-3.0) H Basophils (%) (Auto) 1.7 % (0.0-2.0) Prothrombin Time 10.7 SEC (9.30-11.50) Prothromb Time International Ratio 1.0 (0.9-1.1) Activated Partial Thromboplast Time 28 SEC (23-33) Sodium Level 146 mEQ/L (135-145) H Potassium Level 4.3 mEQ/L (3.4-4.9) Chloride Level 108 mEQ/L (98-107) H Carbon Dioxide Level 26 mEQ/L (20-30) Anion Gap 12 (5-15) Blood Urea Nitrogen 15 mg/dL (7-23) Creatinine 1.3 mg/dL (0.5-0.9) H Estimat Glomerular Filtration Rate mL/min (>60) Glucose Level 102 mg/dL (74-106) Calcium Level 9.0 mg/dL (8.6-10.2) Total Bilirubin 0.3 mg/dL (0.0-1.2) Aspartate Amino Transf (AST/SGOT) 13 U/L (5-40) Alanine Aminotransferase (ALT/SGPT) 8 U/L (3-33) Alkaline Phosphatase 89 U/L (35-104) Troponin I < 0.30 ng/mL (<=0.30) Total Protein 6.3 g/dL (6.6-8.7) L Albumin 3.5 g/dL (3.5-5.2) Globulin 2.8 g/dL Albumin/Globulin Ratio 1.2 (1.0-2.7) Triglycerides Level 66 mg/dL (< 150) Cholesterol Level 173 mg/dL (< 200) LDL Cholesterol 85 mg/dL (60-99) HDL Cholesterol 75 mg/dL (> 60) H Cholesterol/HDL Ratio 2.3 (3.3-4.4) L Thyroid Stimulating Hormone (TSH) 1.990 uIU/mL (0.300-4.500) MARLENY RAMOS Jan 16, 2017 20:40
[2017-01-16] MEDS ORDERED: Pred Forte 1% Opth Susp 1ml RIGHT EYE ONE (21:00)
[2017-01-16] MEDS: Pred Forte 1% Opth Susp 1ml RIGHT EYE SCH (22:22)
[2017-01-17] VITALS: BP 142/68
[2017-01-17 04:28] VITALS: BP 135/63
[2017-01-17 08:00] VITALS: BP 144/58
[2017-01-17 08:23] LABS: TROPONIN I < 0.30 ng/mL (<=0.30)
[2017-01-17] MEDS: Aspirin EC 81mg tab ORAL SCH (08:27)
[2017-01-17] MEDS: Metoprolol 25mg tab ORAL SCH (08:27)
[2017-01-17] MEDS: Pred Forte 1% Opth Susp 1ml RIGHT EYE SCH (08:28)
[2017-01-17] MEDS: Heparin 5000 units/ml inj SUBQ SCH (09:00)
[2017-01-17 12:00] VITALS: BP 156/75
[2017-01-17] MEDS ORDERED: CLONIDINE0.1 MG ORAL (13:21)
--- NOTE | 2017-01-19 07:26 | Discharge Summary ---
Discharge Summary Hospital Course Date of Admission Jan 15, 2017 at 14:25 Date of Discharge Jan 17, 2017 at 15:00 Admitting Diagnosis generalized weakness, acs HPI Mary Varela is a 86 year old female who was admitted on Jan 15, 2017 at 14:25 for Generalized Weakness,Acute Coronary Syndrome Hospital Course [id number] Discharge Discharge Disposition Patient was discharged to Home (01) Discharge Diagnoses: Yaquelin Benitez NP Jan 19, 2017 07:26
--- NOTE | 2017-01-19 12:16 | Diagnostic Imaging Report ---
APPROVED REPORT CPT Code: 13431 Vascular Symptoms Syncope CAROTID (BILATERAL) - Imaging reveals no significant plaque within the right and left extracranial carotid arteries. The Doppler spectral flow analysis is within normal limits throughout the extracranial carotid arteries bilaterally. VERTEBRAL- The vertebral arteries are within normal limits.
--- NOTE | 2017-01-19 15:16 | Cardiology Report ---
APPROVED REPORT EKG Measurement Heart [id number] [id number] Normal sinus rhythm Moderate voltage criteria for LVH, may be normal variant Nonspecific T wave abnormality Abnormal ECG
--- NOTE | 2017-01-20 02:30 | Discharge Summary 2 SIG ---
DATE OF ADMISSION: 01/15/2017 DATE OF DISCHARGE: 01/17/2017 CONSULTANTS: 1. Nuno Shen M.D. 2. Sal Campos M.D. Brief Hospital Course: The patient is an 86-year-old female with history of hypertension, presented to ED complaining of generalized weakness as well as left-sided headache. The patient had acute onset of symptoms and had some associated dizziness. BP reading at home was more than 200. She called her primary doctor's office and was advised to take an extra dose of her Lopressor. She then presented to ED. On arrival, blood pressure was 178/85. EKG was in normal sinus rhythm with no acute ST to T-wave changes. There was noted some T-wave inversion. Due to dizziness, CT of the head was ordered and showed no acute hemorrhage or CVA. She was given aspirin as well as meclizine and Zofran. She was having episodes of chest discomfort. The patient was then admitted to telemetry for cardiac evaluation. She was recently hospitalized for the same situation at [facility] and had cardiac catheterization couple of years ago that was negative. Her cardiac troponins were monitored. She had troponin negative x3. She was given aspirin and was continued on her antihypertensives, Norvasc, and Lopressor. Carotid ultrasound did not show any significant plaques. Blood pressure had better control. Since there was no abnormal troponin, she was advised to follow up with her usual medical physicist. She was eventually discharged home. FINAL DIAGNOSES: 1. Hypertensive emergency. 2. Hypertensive encephalopathy. 3. Coronary artery disease. 4. Generalized weakness. 5. Acute tubular necrosis. 6. Atypical chest pain, chronic and recurrent. 7. New onset left hemicrania. DISCHARGE DISPOSITION: The patient was discharged home. DISCHARGE MEDICATIONS: Refer to medication list. Follow up: The patient was advised to follow up with the medical physicist and PMD in a week. ACTIVITY: As tolerated. Bandar Campos M.D. I have been assigned to dictate discharge summary on this account and I was not involved in the patient's management. Yaquelin Benitez N.P. DR: ALISON JOB#: [id number] CC: AKASH
--- NOTE | 2017-01-22 19:44 | Cardiology Report ---
APPROVED REPORT EXAM: Two-dimensional and M-mode echocardiogram with Doppler and color Doppler. INDICATION Left ventricular function M-Mode DIMENSIONS Left Atrium (MM)3.8 (1.6-4.0cm) Aortic Root2.7 (2.0-3.7cm) Aortic Cusp Exc.1.8 (1.5-2.0cm) M-mode measurements of left ventricle not obtainable due to cardiac position (angle) Normal left ventricular chamber size, systolic function and wall motion. Left ventricular ejection fraction estimated to be 55 %. Mild left ventricular hypertrophy. Anterior Echo-free space, may be due to pericardial fat or effusion. All other cardiac chamber sizes are within normal limits. Mild focal aortic valve sclerosis with adequate cusp excursion. Mildly thickened mitral valve leaflets with normal excursion. Mild mitral annulus and aortic root calcification. Pulmonic valve not well visualized. Normal tricuspid valve structure. IVC dilated at 1.9 cm with physiological collapse. A color flow and spectral Doppler study was performed and revealed: No aortic regurgitation. Mild mitral regurgitation. Mitral diastolic velocities suggest reduced left ventricular relaxation c/w mild diastolic dysfunction (Grade I). Mild tricuspid regurgitation. Tricuspid systolic velocities suggests peak right ventricular systolic pressure of 51 mmHg, consistent with moderate pulmonary hypertension. No pulmonic regurgitation present.
--- NOTE | 2017-02-11 17:55 | Cardiology Report ---
APPROVED REPORT EKG Measurement Heart [id number] 190P1 [id number] Sinus bradycardia Left ventricular hypertrophy with repolarization abnormality Abnormal ECG
--- NOTE | 2017-02-11 18:10 | Cardiology Report ---
APPROVED REPORT EKG Measurement Heart [id number] 176P10 [id number] Normal sinus rhythm Left axis deviation Voltage criteria for left ventricular hypertrophy Abnormal ECG
--- NOTE | 2017-02-11 18:10 | Cardiology Report ---
APPROVED REPORT EKG Measurement Heart [id number] 174P6 [id number] Normal sinus rhythm Left axis deviation Moderate voltage criteria for LVH, may be normal variant Anterior infarct, age undetermined Abnormal ECG
== END 2017-01-17 15:00 | disposition home or self-care (01) | DRG 77 ==
LOC: EDBD 13:18 → EMR 14:01 → 2E 14:25 → EDBEDREQ 15:01
DX: I67.4 Hypertensive encephalopathy (principal); N17.0 Acute kidney failure with tubular necrosis; R53.1 Weakness; Z66 Do not resuscitate; I13.10 Hypertensive heart and chronic kidney disease without heart failure, with stage 1 through stage 4 chronic kidney disease, or unspecified chronic kidney disease; N18.9 Chronic kidney disease, unspecified; G44.039 Episodic paroxysmal hemicrania, not intractable; I25.10 Atherosclerotic heart disease of native coronary artery without angina pectoris; R07.89 Other chest pain; Z94.7 Corneal transplant status; Z96.653 Presence of artificial knee joint, bilateral; M25.512 Pain in left shoulder; G89.29 Other chronic pain; E78.5 Hyperlipidemia, unspecified; E11.9 Type 2 diabetes mellitus without complications; Z86.73 Personal history of transient ischemic attack (TIA), and cerebral infarction without residual deficits
CPT/HCPCS: 36415; 70450; 71010; 80053; 80061; 81003; 82550; 82553; 83605; 84443; 84484; 85025; 85610; 85730; 87040; 93005; 93306; 93880; 94664; 99285; J2405